=== PATIENT | female | born 1990 | race Caucasian/White ===

== ENCOUNTER 2017-02-24 13:48 | Emergency (ER) | payer MEDICAID ==
[~2017-02-24 13:48] MED LIST: IBUP600 PO; OXYC1SOL5 PO; PERI8.6T PO; PROT40TA PO
[2017-02-24 13:50] VITALS: BP 110/77; PULSE 88; RESP 20; TEMP 97.7; O2SAT 98
[2017-02-24 14:18] LABS: BLOOD, URINE TRACE (NEG); GLUCOSE,URINE NEG (NEG); KETONE, URINE NEG (NEG); NITRITE,URINE NEG (NEG)
[2017-02-24] MEDS ORDERED: NORC5TAB PO (14:34)
[2017-02-24] MEDS ORDERED: DOXY100C PO (14:34)
[2017-02-24] MEDS ORDERED: FAMC250T PO (14:34)
[2017-02-24] MEDS ORDERED: METR-1 PO (14:34)
--- NOTE | 2017-02-24 14:34 | PD ---
HPI . Irritation of the vagina Chief Complaint: Complaint Time Seen by Provider: 14:00 Travel History International Travel<30 days: No Contact w/Intl Traveler<30days: No Traveled to known affect area: No History of Present Illness HPI The patient presents with a two-week history of vaginal irritation. She describes the pain as moderate and burning. She also has dysuria. She reports an occasional discharge. She states that she used an over the counter vaginal suppository and that it made her symptoms worse rather than better. She denies any abnormal vaginal bleeding and she denies any dyspareunia. PFSH Past Medical History Diminished Hearing: No Immunizations Current: No ?: Not LMP: 3 WEEKS Menopausal: No : 2 Para: 1 Miscarriage: 1 Past Surgical History Tonsillectomy: Yes Social History Alcohol Use: No Tobacco Use: No Substance Use: No Allergies-Medications (Allergen,Severity, Reaction): Coded Allergies: No Known Allergies (Verified , 02/24/17) Reported Meds & Prescriptions Reported Meds & Active Scripts Active Famciclovir 250 Mg Tab 250 Mg PO TID 10 Days [place] (Hydrocodone-Acetaminophen) 5-325 mg Tab 1 Tab PO Q4H PRN Flagyl (Metronidazole) 500 Mg Tab 500 Mg PO BID 7 Days Doxycycline Hyclate 100 Mg Cap 100 Mg PO BID Review of Systems Except as stated in HPI: all other systems reviewed are Neg General / Constitutional: No: Fever, Chills Genitourinary: Positive: Dysuria, Discharge, No: Urgency, Frequency, Pelvic Pain, Dyspareunia, Dysmenorrhea, Menorrhagia, Metorrhagia, Vaginal Bleeding Physical Exam Narrative GENERAL: Awake and alert and in no acute distress. SKIN: Warm and dry. HEAD: Atraumatic. Normocephalic. EYES: Pupils equal and round. Extraocular movements are intact. NECK: Trachea midline. Neck is supple. CARDIOVASCULAR: Regular rate and rhythm. RESPIRATORY: No accessory muscle use. : Erythema of the external genitalia. Scattered vesicular lesions. Yellow discharge in the vaginal vault. No cervical motion tenderness. No adnexal masses or tenderness. MUSCULOSKELETAL: No obvious deformities. No edema. NEUROLOGICAL: Awake and alert. No obvious cranial nerve deficits. Motor grossly within normal limits. Normal speech. PSYCHIATRIC: Appropriate mood and affect; insight and judgment normal. Data Data Last Documented VS Vital Signs Date Time Temp Pulse Resp B/P Pulse Ox O2 Delivery O2 Flow Rate FiO2 02/24/17 13:50 97.7 88 20 110/77 98 Orders Urinalysis - C+S If Indicated (02/24/17 14:00) Ed Urine Pregnancytest Poc (02/24/17 14:00) Gc And Chlamydia Pcr (02/24/17 14:09) Wet Prep Profile (02/24/17 14:09) Herpes Simplex Virus Culture (02/24/17 14:34) Ceftriaxone Inj (Rocephin Inj) (02/24/17 14:45) Lidocaine 1% Inj (50 Ml) (Xylocaine 1% I (02/24/17 14:45) Urine Culture (02/24/17 14:10) Lidocaine Pf 1% Inj (Xylocaine-Mpf 1% In (02/24/17 14:45) Labs Laboratory Tests Test 02/24/17 02/24/17 14:10 14:26 Urine Collection Type CLEAN CATCH Urine Color YELLOW Urine Turbidity SLIGHT Urine pH 6.0 Urine Specific [place] 1.012 Urine Protein NEG mg/dL Urine Glucose (UA) NEG mg/dL Urine Ketones NEG mg/dL Urine Occult Blood TRACE Urine Nitrite NEG Urine Bilirubin NEG Urine Leukocyte Esterase MOD Urine RBC 4-9 /hpf Urine WBC 100-200 /hpf Urine WBC Clumps MOD Urine Squamous Epithelial > 8 /hpf Cells Urine Bacteria FEW /hpf Microscopic Urinalysis Comment CULTURE INDICATED Urine Collection Time 14:10 Clue Cells (Wet Prep) NONE SEEN Vaginal Trichomonas (Wet Prep) NONE SEEN Vaginal Yeast (Wet Prep) NONE SEEN MDM Medical Decision Making Medical Screen Exam Complete: Yes Emergency Medical Condition: Yes Differential Diagnosis Differential diagnosis of vaginal discharge includes but is not limited to physiologic discharge, yeast infection, bacterial vaginosis, sexually transmitted disease. Narrative Course This patient presents with irritation of the external genitalia. Her exam is concerning for herpes. I will go ahead and initiate treatment. I will also treat her for possible GC, chlamydia and Trichomonas. HCG neg UA>>100-200 WBC, mod WBC clumps, few bact wet prep neg Perhaps this patient just has urinary tract infection. I will go ahead and presents for herpes and STDs and treat accordingly. Her UTI should get better with doxycycline. Diagnosis Primary Impression: Vaginal irritation Additional Impression: UTI (urinary tract infection) Qualified Code: N30.00 - Acute cystitis without hematuria Patient Instructions: General Instructions, Genital Herpes Simplex (DC) Med/Other Pt SpecificInfo: Prescription(s) given Scripts Famciclovir 250 Mg [id number] Mg PO TID 10 Days Ref 0 Prov:Keya Pena MD 02/24/17 Hydrocodone-Acetaminophen ([place])5-325 mg Tab1 Tab PO Q4H PRN (PAIN) #12 TAB Ref 0 Prov:Keya Pena MD 02/24/17 Metronidazole (Flagyl)500 Mg [id number] Mg PO BID 7 Days Ref 0 Prov:Keya Pena MD 02/24/17 Doxycycline Hyclate 100 Mg [id number] Mg PO BID #20 CAP Ref 0 Prov:Keya Pena MD 02/24/17 Disposition: 01 DISCHARGE HOME Condition: Stable Keya Pena MD Feb 24, 2017 14:34
[2017-02-24 14:36] LABS: METHOD OF COLLECTION CLEAN CATCH; URINE COLOR YELLOW (YELLW/STRAW); WBC, URINE 100-200 /hpf (0-5)
[2017-02-24 14:37] LABS: BACTERIA, URINE FEW /hpf; COMMENT (UR) CULTURE INDICATED; CULTURE IF INDICATED CULTURE INDICATED; SQUAMOUS EPITHELIAL CELL URINE > 8 /hpf (0-5)
[2017-02-24] MEDS ORDERED: LIDOCAINE HCL 1% 50 ML VIAL XX ONE (14:45)
[2017-02-24] MEDS ORDERED: LIDOCAINE HCL 1% PF 30 ML VIAL OTHER ONE (14:45)
[2017-02-24] MEDS ORDERED: cefTRIAXone 250 MG VIAL IM ONE (14:45)
[2017-02-24 18:02] LABS: CHLAMYDIA PCR NOT DETECTED (NOT DETECT); NEISSERIA PCR NOT DETECTED (NOT DETECT)
== END 2017-02-24 15:15 | disposition home or self-care (01) ==
LOC: PHED 13:48
DX: N89.8 Other specified noninflammatory disorders of vagina (principal); N30.00 Acute cystitis without hematuria; A49.8 Other bacterial infections of unspecified site
CPT/HCPCS: 81001; 84703; 87077; 87086; 87186; 87210; 87255; 87491; 87591; 96372; 99284; J0696

== ENCOUNTER 2017-11-23 11:46 | Emergency (ER) | payer MEDICAID ==
[~2017-11-23] VITALS: Ht 157.5 cm; Wt 52.3 kg
[~2017-11-23 11:46] MED LIST changes: +DOXY100C PO; +FAMC250T PO; -IBUP600 PO; +METR-1 PO; +NORC5TAB PO; -OXYC1SOL5 PO; -PERI8.6T PO; -PROT40TA PO
[2017-11-23 11:56] VITALS: BP 121/58; PULSE 74; RESP 18; TEMP 99; O2SAT 100
--- NOTE | 2017-11-23 12:16 | RADRPT ---
EXAM DATE/TIME: 11/23/2017 12:13 [facility] COMPARISON: No previous studies available for comparison. INDICATIONS : Chest pain, right side. MEDICAL HISTORY : Asthma. SURGICAL HISTORY : None. ENCOUNTER: Initial ACUITY: 3 days PAIN SCORE: 4/10 LOCATION: Right chest Pectoral FINDINGS: PA and lateral views of the chest demonstrate the lungs to be symmetrically aerated without evidence of mass, infiltrate or effusion. The cardiomediastinal contours are unremarkable. Osseous structure s are intact. CONCLUSION: No acute disease. William Woody MD on November 23, 2017 at 12:15 Board Certified Radiologist. This report was verified electronically.
[2017-11-23 12:45] LABS: AUTOMATED NEUTROPHIL # 6.3 TH/MM3 (1.8-7.7); BASOPHIL # 0.1 TH/MM3 (0-0.2); BASOPHIL % 0.9 % (0.0-2.0); BILIRUBIN, URINE NEG (NEG); BLOOD, URINE NEG (NEG); EOSINOPHIL # 0.1 TH/MM3 (0-0.4); EOSINOPHIL % 0.9 % (0.0-4.0); GLUCOSE,URINE NEG (NEG); HEMATOCRIT 36.3 % (35.0-46.0); HEMOGLOBIN 11.8 GM/DL (11.6-15.3); KETONE, URINE NEG (NEG); LYMPH % 19.5 % (9.0-44.0); LYMPHOCYTE # 1.7 TH/MM3 (1.0-4.8); MEAN CELL VOLUME 76.5 FL (80.0-100.0); MEAN CORPUSCULAR HEMOGLOBIN 24.8 PG (27.0-34.0); MEAN CORPUSCULAR HGB CONC 32.4 % (32.0-36.0); MEAN PLATELET VOLUME 8.9 FL (7.0-11.0); MONO % 5.2 % (0.0-8.0); MONOCYTE # 0.4 TH/MM3 (0-0.9); NEUT % 73.5 % (16.0-70.0); NITRITE,URINE NEG (NEG); PH, URINE 5.5 (5.0-8.5); PLATELET COUNT 302 TH/MM3 (150-450); RED BLOOD COUNT 4.75 MIL/MM3 (4.00-5.30); RED CELL DISTRIBUTION WIDTH 19.1 % (11.6-17.2); SQUAMOUS EPITHELIAL CELL URINE 1 /hpf (0-5); URINE COLOR YELLOW (YELLW/STRAW); URINE LEUKOCYTE ESTERASE NEG (NEG); WHITE BLOOD COUNT 8.6 TH/MM3 (4.0-11.0)
[2017-11-23 12:53] LABS: INTERNATIONAL NORMALIZED RATIO 1.1 RATIO; PROTHROMBIN TIME - PATIENT 10.8 SEC (9.8-11.6)
[2017-11-23 13:00] LABS: ALBUMIN 3.9 GM/DL (3.4-5.0); AST (GOT) 21 U/L (15-37); BICARBONATE 23.7 MEQ/L (21.0-32.0); BLOOD UREA NITROGEN 11 MG/DL (7-18); CALCIUM 8.6 MG/DL (8.5-10.1); CHLORIDE 107 MEQ/L (98-107); CREATININE 0.76 MG/DL (0.50-1.00); GLOMERULAR FILTRATION RATE 91 ML/MIN (>89); GLUCOSE,RANDOM 87 MG/DL (74-106); MAGNESIUM 1.9 MG/DL (1.5-2.5); SODIUM (NA) 139 MEQ/L (136-145)
[2017-11-23 13:05] LABS: ALKALINE PHOSPHATASE 56 U/L (45-117); ALT (GPT) 20 U/L (10-53); TOTAL BILIRUBIN ADULT 0.4 MG/DL (0.2-1.0); TOTAL PROTEIN 8.1 GM/DL (6.4-8.2); TROPONIN I LESS THAN 0.02 NG/ML (0.02-0.05)
--- NOTE | 2017-11-23 13:05 | PD ---
HPI Chief Complaint: Chest Pain Time Seen by Provider: 12:47 Travel History International Travel<30 days: No Contact w/Intl Traveler<30days: No Traveled to known affect area: No History of Present Illness HPI The patient was seen and examined in the presence of the nurse. This patient complains of chest pain. It's located in the right side ribs. No injury or shortness of breath or fever or cough. Symptoms severity is mild. No alleviating factors. No exacerbating factors. Duration 3 days. PFSH Past Medical History Diminished Hearing: No Immunizations Current: No ?: Not Menopausal: No : 2 Para: 1 Miscarriage: 1 Past Surgical History Tonsillectomy: Yes Social History Alcohol Use: No Tobacco Use: No Substance Use: No Allergies-Medications (Allergen,Severity, Reaction): Coded Allergies: No Known Allergies (Verified , 02/24/17) Reported Meds & Prescriptions Reported Meds & Active Scripts Active Famciclovir 250 Mg Tab 250 Mg PO TID 10 Days [place] (Hydrocodone-Acetaminophen) 5-325 mg Tab 1 Tab PO Q4H PRN Flagyl (Metronidazole) 500 Mg Tab 500 Mg PO BID 7 Days Doxycycline Hyclate 100 Mg Cap 100 Mg PO BID Review of Systems General / Constitutional: No: Fever Eyes: No: Visual changes HENT: No: Headaches Cardiovascular: Positive: Chest Pain or Discomfort Respiratory: No: Shortness of Breath Gastrointestinal: No: Abdominal Pain Genitourinary: No: Dysuria Musculoskeletal: No: Pain Skin: No Rash Neurologic: No: Weakness Psychiatric: No: Depression Endocrine: No: Polydipsia Hematologic/Lymphatic: No: Easy Bruising Physical Exam Narrative GENERAL: Well-nourished, well-developed patient in no apparent distress. SKIN: Focused skin assessment reveals no rash and nodules. Skin is Warm and dry. HEAD: Atraumatic. Normocephalic. EYES: Pupils equal and round. No scleral icterus. No injection or drainage. ENT: No nasal bleeding or discharge. Mucous membranes pink and moist. NECK: Trachea midline. No JVD. CARDIOVASCULAR: Regular rate and rhythm. No murmur appreciated. RESPIRATORY: No accessory muscle use. Clear to auscultation. Breath sounds equal bilaterally. GASTROINTESTINAL: Abdomen soft, non-tender, nondistended. Hepatic and splenic margins not palpable. MUSCULOSKELETAL: No obvious deformities. No clubbing. No cyanosis. No edema. Chest wall examination reveals reproducible chest wall tenderness in the right anterior axillary line. No crepitus or redness or warmth. No dominant breast mass noted on the right side NEUROLOGICAL: Awake and alert. No obvious cranial nerve deficits. Motor grossly within normal limits. Normal speech. PSYCHIATRIC: Appropriate mood and affect; insight and judgment normal. Data Data Last Documented VS Vital Signs Date Time Temp Pulse Resp B/P (MAP) Pulse Ox O2 Delivery O2 Flow Rate FiO2 11/23/17 14:05 52 18 112/60 (77) 98 Room Air 11/23/17 11:56 99.0 Orders Orders Electrocardiogram (11/23/17 11:58) Ckmb (Isoenzyme) Profile (11/23/17 11:58) Complete Blood Count With Diff (11/23/17 11:58) Comprehensive Metabolic Panel (11/23/17 11:58) Magnesium (Mg) (11/23/17 11:58) Troponin I (11/23/17 11:58) Lipase (11/23/17 11:58) Chest, Pa & Lat (11/23/17 11:58) Ed Urine Pregnancytest Poc (11/23/17 11:58) Urinalysis - C+S If Indicated (11/23/17 12:24) Act Partial Throm Time (Ptt) (11/23/17 12:24) Prothrombin Time / Inr (Pt) (11/23/17 12:24) Labs Laboratory Tests Test 11/23/17 12:25 White Blood Count 8.6 TH/MM3 Red Blood Count 4.75 MIL/MM3 Hemoglobin 11.8 GM/DL Hematocrit 36.3 % Mean Corpuscular Volume 76.5 FL Mean Corpuscular Hemoglobin 24.8 PG Mean Corpuscular Hemoglobin Concent 32.4 % Red Cell Distribution Width 19.1 % Platelet Count 302 TH/MM3 Mean Platelet Volume 8.9 FL Neutrophils (%) (Auto) 73.5 % Lymphocytes (%) (Auto) 19.5 % Monocytes (%) (Auto) 5.2 % Eosinophils (%) (Auto) 0.9 % Basophils (%) (Auto) 0.9 % Neutrophils # (Auto) 6.3 TH/MM3 Lymphocytes # (Auto) 1.7 TH/MM3 Monocytes # (Auto) 0.4 TH/MM3 Eosinophils # (Auto) 0.1 TH/MM3 Basophils # (Auto) 0.1 TH/MM3 CBC Comment DIFF FINAL Differential Comment Prothrombin Time 10.8 SEC Prothromb Time International Ratio 1.1 RATIO Activated Partial Thromboplast Time 25.4 SEC Urine Color YELLOW Urine Turbidity CLEAR Urine pH 5.5 Urine Specific [place] 1.017 Urine Protein NEG mg/dL Urine Glucose (UA) NEG mg/dL Urine Ketones NEG mg/dL Urine Occult Blood NEG Urine Nitrite NEG Urine Bilirubin NEG Urine Urobilinogen LESS THAN 2.0 MG/DL Urine Leukocyte Esterase NEG Urine RBC LESS THAN 1 /hpf Urine WBC LESS THAN 1 /hpf Urine Squamous Epithelial Cells 1 /hpf Microscopic Urinalysis Comment CULT NOT INDICATED Blood Urea Nitrogen 11 MG/DL Creatinine 0.76 MG/DL Random Glucose 87 MG/DL Total Protein 8.1 GM/DL Albumin 3.9 GM/DL Calcium Level 8.6 MG/DL Magnesium Level 1.9 MG/DL Alkaline Phosphatase 56 U/L Aspartate Amino Transf (AST/SGOT) 21 U/L Alanine Aminotransferase (ALT/SGPT) 20 U/L Total Bilirubin 0.4 MG/DL Sodium Level 139 MEQ/L Potassium Level 4.2 MEQ/L Chloride Level 107 MEQ/L Carbon Dioxide Level 23.7 MEQ/L Anion Gap 8 MEQ/L Estimat Glomerular Filtration Rate 91 ML/MIN Total Creatine Kinase 86 U/L Troponin I LESS THAN 0.02 NG/ML Lipase 171 U/L MDM Medical Decision Making Medical Screen Exam Complete: Yes Emergency Medical Condition: Yes Medical Record Reviewed: Yes Differential Diagnosis Chest wall pain, costochondritis, skin lesion, ACS Narrative Course I have reviewed the patient's electronic medical record. I reviewed her EKG which shows sinus rhythm without ST elevation Her chest x-ray is normal CBC urinalysis normal Metabolic studies including cardiac enzymes are normal This patient has chest wall pain. No clinical suspicion of ACS Does not require emergent inpatient care or evaluation The patient was advised to follow up with their physician and return if they worsen. Diagnosis Primary Impression: Musculoskeletal chest pain Additional Instructions: The patient was advised to follow up with their physician and return if they worsen. Med/Other Pt SpecificInfo: Other Disposition: 01 DISCHARGE HOME Condition: Stable Amrit Sanon MD Nov 23, 2017 13:05
[2017-11-23 14:05] VITALS: BP 112/60; PULSE 52; RESP 18; O2SAT 98
[2017-11-23 15:28] VITALS: BP 114/62
--- NOTE | 2017-11-24 23:02 | EKG ---
Date Performed: 11/23/2017 Time Performed: 12:20:13 PTAGE: 27 years EKG: Sinus rhythm WITH SHORT AR INTERVAL BORDERLINE ECG NO PREVIOUS TRACING DOCTOR: Yolanda Castellanos Interpretating Date/Time 11/24/2017 23:02:09
== END 2017-11-23 15:32 | disposition home or self-care (01) ==
LOC: NED 11:46 → NEPD 15:32
DX: R07.89 Other chest pain (principal); Z79.899 Other long term (current) drug therapy
CPT/HCPCS: 71046; 80053; 81001; 82550; 83690; 83735; 84484; 84703; 85025; 85610; 85730; 93005